=== PATIENT | female | born 1980 | race Caucasian/White ===

== ENCOUNTER → 2021-02-08 | Outpatient (CLI) | payer BC ==
[~2021-02-08] MED LIST: MACROBID 100 M100 MG PO
== END ==
LOC: EXRD 08:55
DX: M54.5 Low back pain (principal); M54.6 Pain in thoracic spine
CPT/HCPCS: 72070; 72100

== ENCOUNTER 2022-01-22 08:19 | Emergency (ER) | payer BC ==
[2022-01-22 09:03] LABS: HEMOGLOBIN 13.3 gm/dl (12.3-15.3); RED BLOOD COUNT 4.64 M/UL (4.00-5.10); WHITE BLOOD COUNT 6.4 K/UL (4.5-11.0)
[2022-01-22 09:24] LABS: BUN/CREATININE RATIO 16 (0-10)
[2022-01-22] MEDS ORDERED: OMNICEF 300 MG300 MG PO (13:36)
== END 2022-01-22 13:32 | disposition home or self-care (01) ==
LOC: ER1 08:19
PROVIDERS: Physician Assistant
DX: N39.0 Urinary tract infection, site not specified (principal); N83.8 Other noninflammatory disorders of ovary, fallopian tube and broad ligament; Z88.6 Allergy status to analgesic agent; F17.210 Nicotine dependence, cigarettes, uncomplicated; Z20.822 Contact with and (suspected) exposure to COVID-19
CPT/HCPCS: 80053; 81001; 83690; 84703; 85025; 87086; 99284; Q9967; U0002